=== PATIENT | male | born 1985 | race Caucasian/White ===

== ENCOUNTER → 2025-01-10 06:44 | Outpatient (REF) | payer BC, SELFPAY | LOC: HWRAD 06:44 | PROVIDERS: ATTENDING PHYSICIAN Chiropractor; FAMILY PHYSICIAN Internal Medicine | DX: M54.2 Cervicalgia (principal); M54.6 Pain in thoracic spine; M25.511 Pain in right shoulder | CPT/HCPCS: 72050; 72072; 73030 ==